=== PATIENT | female | born 1985 | race Caucasian/White ===

== ENCOUNTER → 2016-07-13 | Outpatient (CLI) | payer OTHER ==
[~2016-07-13] MED LIST: ALBUTEROL0.09 MG/A2 INH; ALLEGRA-D 12 HO1 TER PO; AMBIEN10 M1 PO; AMOXICILLIN500 M3 PO; AMOXIL500 MG PO; AUGMENTIN 875875 MG PO; BIRTH CONTROL1 EAC1 PO; CALCIUM W/VITAM1 TAB PO; CATAFLAM50 MG PO; CEPHALEXIN500 M1 PO; CLEOCIN HCL150 MG PO; DICLOFENAC POTA50 MG PO; ERYTHROCIN250 MG PO; ERYTHROMYCIN D; FLEXERIL10 MG PO; FLEXERIL5 MG PO; FLONASE ALLERG9.9 ML NAS; GUAIFENESIN600 MG PO; HYCODAN,HYDROME10 ML PO; HYDROCODONE BIT1 T11 PO; LAMICTAL ODT100 MG PO; LIDEX 0.05% CRE15 GM T; LOMOTIL 0.025 M1 TAB PO; MEDROL DOSEPAK4 MG PO; MIRAPEX0.5 MG PO; MOTRIN600 MG PO; MOTRIN800 MG PO; NEURONTIN300 MG PO; NORFLEX100 MG PO; OTC COUGH MED; OYSTER CALCIUM500 M1 PO; PENICILLIN VK500 MG PO; PHENERGAN W/ DE30 ML PO; PREDNICOT10 MG PO; PREDNISONE10 MG PO; PRENATAL1 TA7 PO; PRILOSEC20 MG PO; PROAIR HFA0.09 MG/AC INH; PROVENTIL0.09 MG/A1 INH; ROBITUSSIN AC 10 MG/ PO; ROBITUSSIN AC 110 ML PO; THE MEDICINE S400 IU PO; TRAMADOL HCL50 MG PO; TRIMOX500 MG PO; TYLENOL500 MG PO; ULTRAM50 MG PO; VENTOLIN H0.09 MG/AC INH; VIBRAMYCIN100 MG PO; VICODIN 5/500 505 MG PO; VITAMIN B PO; VITAMIN D32000 I1 PO; ZITHROMAX Z PA250 MG PO; ZITHROMAX250 MG PO; ZITHROMAX500 MG PO; ZOFRAN4 MG PO; Zofran4 MG PO
[2016-07-13 11:59] LABS: BASO % 0.3 % (0.0-1.0); EOS # 0.2 10*3/uL (0.0-0.4); EOS % 1.3 % (1.0-4.0); HEMATOCRIT 40.9 % (37.0-47.0); HEMOGLOBIN 13.3 g/dl (12.0-16.0); LYMPH # 2.9 10*3/uL (1.3-4.4); MEAN CORPUSCULAR HGB 28.3 pg (27.0-31.0); MEAN CORPUSCULAR HGB CONC 32.5 g/dl (33.0-37.0); MEAN PLATELET VOLUME 9.6 fl (9.6-12.3); MONO # 0.5 10*3/uL (0.1-1.0); MONO % 4.6 % (3.0-9.0); NEUT # 7.9 10*3/uL (2.3-7.9); NEUT % 68.5 % (47.0-73.0); PLATELET COUNT AUTOMATED 346 10*3/uL (130-400); RED CELL DISTRI WIDTH 14.3 % (0-14.5); WHITE BLOOD COUNT 11.5 10*3/uL (4.8-10.8)
== END | disposition home or self-care (01) ==
LOC: LAB 11:45
PROVIDERS: Nurse Practitioner Family
DX: D72.829 Elevated white blood cell count, unspecified (principal)

== ENCOUNTER 2016-11-25 18:56 | Emergency (ER) | payer OTHER ==
[~2016-11-25] VITALS: Ht 170.1 cm; Wt 156.0 kg
[2016-11-25] MEDS ORDERED: FLONASE ALLERG9.9 ML NAS (19:24)
[2016-11-25] MEDS ORDERED: CLARITIN10 MG PO (19:24)
[2016-11-25] MEDS ORDERED: ROBITUSSIN DM 105 ML PO (19:24)
[2016-11-25 19:30] LABS: BASO % 0.4 % (0.0-1.0); EOS # 0.2 10*3/uL (0.0-0.4); EOS % 2.1 % (1.0-4.0); HEMATOCRIT 39.2 % (37.0-47.0); HEMOGLOBIN 12.7 g/dl (12.0-16.0); LYMPH # 3.2 10*3/uL (1.3-4.4); LYMPH % 28.6 % (27.0-41.0); MEAN CELL VOLUME 89.7 fl (81.0-99.0); MEAN CORPUSCULAR HGB 29.1 pg (27.0-31.0); MEAN CORPUSCULAR HGB CONC 32.4 g/dl (33.0-37.0); MEAN PLATELET VOLUME 9.3 fl (9.6-12.3); MONO # 0.6 10*3/uL (0.1-1.0); MONO % 5.4 % (3.0-9.0); NEUT # 7.1 10*3/uL (2.3-7.9); PLATELET COUNT AUTOMATED 336 10*3/uL (130-400); RED BLOOD COUNT 4.37 10*6/uL (4.10-5.10); RED CELL DISTRI WIDTH 14.1 % (0-14.5); WHITE BLOOD COUNT 11.2 10*3/uL (4.8-10.8)
[2016-11-25 19:45] LABS: ALBUMIN 3.4 gm/dl (3.1-4.5); ALKALINE PHOSPHATASE 102 U/L (45-117); BUN 17 mg/dl (7-24); CHLORIDE 110 mmol/L (98-107); CREATININE 1.08 mg/dL (0.55-1.02); SGOT/AST 13 IU/L (3-35); SGPT/ALT 38 U/L (12-78); SODIUM 143 mmol/L (136-145); TOTAL PROTEIN 7.2 gm/dL (6.4-8.2)
[2016-11-25] MEDS ORDERED: AVPAK AZITHROM250 MG PO (20:39)
== END 2016-11-25 21:19 | disposition home or self-care (01) ==
LOC: ED 18:56
PROVIDERS: Nurse Practitioner Family
DX: J06.9 Acute upper respiratory infection, unspecified (principal); R03.0 Elevated blood-pressure reading, without diagnosis of hypertension; F17.200 Nicotine dependence, unspecified, uncomplicated; Z88.6 Allergy status to analgesic agent

== ENCOUNTER 2017-03-13 15:33 | Emergency (ER) | payer OTHER ==
[~2017-03-13 15:33] MED LIST changes: +AVPAK AZITHROM250 MG PO; +CLARITIN10 MG PO; +ROBITUSSIN DM 105 ML PO
[2017-03-13] MEDS ORDERED: TESSALON PERLE100 M1 PO (16:11)
[2017-03-13] MEDS ORDERED: HYCODAN/HYDROMET5 ML PO (16:11)
== END 2017-03-13 16:14 | disposition home or self-care (01) ==
LOC: ED 15:33
DX: B34.9 Viral infection, unspecified (principal); F17.200 Nicotine dependence, unspecified, uncomplicated; Z79.899 Other long term (current) drug therapy; Z88.6 Allergy status to analgesic agent

== ENCOUNTER → 2017-03-29 | Outpatient (CLI) | payer OTHER ==
[~2017-03-29] MED LIST changes: +HYCODAN/HYDROMET5 ML PO; +TESSALON PERLE100 M1 PO
== END | disposition home or self-care (01) ==
LOC: LAB 14:53
DX: F39 Unspecified mood [affective] disorder (principal)

== ENCOUNTER → 2017-06-24 | Outpatient (CLI) | payer OTHER | END | disposition home or self-care (01) | LOC: LAB 13:27 | DX: F39 Unspecified mood [affective] disorder (principal) ==

== ENCOUNTER 2024-08-16 09:27 | Emergency (ER) | payer OTHER ==
[~2024-08-16] VITALS: Ht 170.1 cm; Wt 211.4 kg
[2024-08-16] MEDS ORDERED: MIRTAZAPINE15 M1 PO (09:52)
[2024-08-16] MEDS ORDERED: LIPITOR10 MG PO (09:53)
[2024-08-16] MEDS ORDERED: METFORMIN XR500 MG PO (09:53)
[2024-08-16] MEDS ORDERED: NYSTATIN1 EAC9 MC (09:53)
[2024-08-16] MEDS ORDERED: SYMB160 INH (09:55)
[2024-08-16] MEDS ORDERED: AIRSUPRA 90-810.7 GM IH (09:55)
[2024-08-16 11:49] LABS: BASO % 0.2 % (0.0-1.0); EOS # 0.2 10*3/uL (0.0-0.4); EOS % 2.1 % (1.0-4.0); HEMATOCRIT 39.6 % (37.0-47.0); MEAN CELL VOLUME 86.7 fl (81.0-99.0); MEAN CORPUSCULAR HGB 27.6 pg (27.0-31.0); MEAN CORPUSCULAR HGB CONC 31.8 g/dl (33.0-37.0); MEAN PLATELET VOLUME 9.4 fl (9.6-12.3); MONO # 0.6 10*3/uL (0.1-1.0); MONO % 6.4 % (3.0-9.0); NEUT # 6.4 10*3/uL (2.3-7.9); NEUT % 72.6 % (47.0-73.0); PLATELET COUNT AUTOMATED 302 10*3/uL (130-400); RED BLOOD COUNT 4.57 10*6/uL (4.10-5.10); WHITE BLOOD COUNT 8.8 10*3/uL (4.8-10.8)
[2024-08-16 12:42] LABS: ALKALINE PHOSPHATASE 97 U/L (46-116); BUN 16 mg/dl (9-23); CHLORIDE 106 mmol/L (98-107); POTASSIUM 4.3 mmol/L (3.4-5.1); SGPT/ALT 30 U/L (5-49); TOTAL PROTEIN 7.3 gm/dL (6.0-8.0)
[2024-08-16] MEDS ORDERED: NEURONTIN100 MG PO (14:58)
== END 2024-08-16 15:15 | disposition home or self-care (01) ==
LOC: ED 09:27
PROVIDERS: Emergency Medicine
DX: R60.0 Localized edema (principal); R20.8 Other disturbances of skin sensation; R23.8 Other skin changes; Z88.6 Allergy status to analgesic agent; Z79.899 Other long term (current) drug therapy; Z79.84 Long term (current) use of oral hypoglycemic drugs; Z87.891 Personal history of nicotine dependence

== ENCOUNTER 2024-09-05 10:28 | Inpatient (IN) | payer OTHER ==
[~2024-09-05] VITALS: Ht 170.1 cm; Wt 205.5 kg
[~2024-09-05 10:28] MED LIST changes: +AIRSUPRA 90-810.7 GM IH; +LIPITOR10 MG PO; +METFORMIN XR500 MG PO; +MIRTAZAPINE15 M1 PO; +NEURONTIN100 MG PO; +NYSTATIN1 EAC9 MC; +SYMB160 INH
[2024-09-05 10:56] VITALS: BP 139/89
[2024-09-05 11:55] LABS: BILIRUBIN Negative (Negative); BLOOD Negative (Negative); CLARITY Cloudy (Clear); COLOR Yellow (Yellow); KETONE Negative (Negative); LEUKO ESTERASE 1+ (Negative); NITRITE Negative (Negative); PH 5.5 (4.5-8.0); SPECIFIC GRAVITY 1.010 (1.001-1.030); UROBILINOGEN 1.0 E.U./dl (0.0-1.0)
[2024-09-05 12:06] LABS: BACTERIA 1+; RBC 0-2 rbc/hpf (0-2)
[2024-09-05 12:08] LABS: BASO # 0.0 10*3/uL (0.0-0.1); BASO % 0.1 % (0.0-1.0); EOS # 0.2 10*3/uL (0.0-0.4); EOS % 1.9 % (1.0-4.0); MEAN CELL VOLUME 86.0 fl (81.0-99.0); MEAN CORPUSCULAR HGB 26.7 pg (27.0-31.0); MEAN PLATELET VOLUME 9.3 fl (9.6-12.3); MONO # 0.6 10*3/uL (0.1-1.0); MONO % 4.8 % (3.0-9.0); NEUT # 9.0 10*3/uL (2.3-7.9); NEUT % 76.4 % (47.0-73.0); NUCLEATED RED BLOOD CELL 0.0 % (0.0-0.0); NUCLEATED RED BLOOD CELL 0.0 10*3/uL (0.0-0.0); PLATELET COUNT AUTOMATED 374 10*3/uL (130-400); RED CELL DISTRI WIDTH 14.6 % (0-14.5)
[2024-09-05 12:32] LABS: BUN 9 mg/dl (9-23)
[2024-09-05 14:26] VITALS: BP 144/72
[2024-09-05] MEDS ORDERED: PERFLUTREN PROTEIN-A MICROSPHR 3 ML VIAL IV ONE (15:00)
[2024-09-05] MEDS ORDERED: Vancomycin Hydrochloride 1,000 MG in SODIUM CHLORIDE 0.9% 250 ML IV SCH (15:10)
[2024-09-05] MEDS ORDERED: Ondansetron Hydrochloride 4 MG/2 ML VIAL IV PRN (15:30)
[2024-09-05] MEDS ORDERED: ACETAMINOPHEN 325 MG TAB PO PRN (15:30)
[2024-09-05] MEDS ORDERED: BISACODYL 5 MG TAB PO PRN (15:30)
[2024-09-05 20:30] VITALS: BP 144/67
[2024-09-05] MEDS ORDERED: NEXPLANON68 M2 SQ (20:30)
[2024-09-05] MEDS ORDERED: LAMOTRIGINE 100 MG TAB PO SCH (22:00)
[2024-09-05] MEDS ORDERED: Mirtazapine 15 MG TAB PO SCH (22:00)
[2024-09-05] MEDS ORDERED: ATORVASTATIN CALCIUM 10 MG TAB PO SCH (22:00)
[2024-09-06] VITALS: BP 120/53
[2024-09-06 06:19] LABS: BASO # 0.0 10*3/uL (0.0-0.1); BASO % 0.1 % (0.0-1.0); EOS # 0.2 10*3/uL (0.0-0.4); EOS % 1.9 % (1.0-4.0); MEAN CELL VOLUME 87.9 fl (81.0-99.0); MEAN CORPUSCULAR HGB 27.0 pg (27.0-31.0); MEAN PLATELET VOLUME 9.6 fl (9.6-12.3); MONO # 0.6 10*3/uL (0.1-1.0); MONO % 5.9 % (3.0-9.0); NEUT # 7.4 10*3/uL (2.3-7.9); NEUT % 76.3 % (47.0-73.0); NUCLEATED RED BLOOD CELL 0.0 % (0.0-0.0); NUCLEATED RED BLOOD CELL 0.0 10*3/uL (0.0-0.0); PLATELET COUNT AUTOMATED 358 10*3/uL (130-400); RED CELL DISTRI WIDTH 14.7 % (0-14.5)
[2024-09-06 06:40] LABS: VITAMIN D, 25-HYDROXY 46.0 ng/mL (30-100)
[2024-09-06 06:56] LABS: BUN 11.0 mg/dl (9-23); FREE T4 1.19 ng/dl (0.89-1.76); LDL CHOLESTEROL 75.0 mg/dL (9-159); SGPT/ALT 24.0 U/L (5-49)
[2024-09-06 08:00] VITALS: BP 149/84
[2024-09-06 12:00] VITALS: BP 138/87
[2024-09-06 16:00] VITALS: BP 133/79
[2024-09-06] MEDS ORDERED: Menthol/Zinc Oxide 4 GM THIN T SCH (18:00)
[2024-09-06 20:00] VITALS: BP 117/57
[2024-09-07] VITALS: BP 143/61
[2024-09-07 08:00] VITALS: BP 149/54
[2024-09-07 09:48] LABS: BASO # 0.0 10*3/uL (0.0-0.1); BASO % 0.2 % (0.0-1.0); EOS # 0.2 10*3/uL (0.0-0.4); EOS % 1.9 % (1.0-4.0); MEAN CELL VOLUME 88.2 fl (81.0-99.0); MEAN CORPUSCULAR HGB 27.5 pg (27.0-31.0); MEAN PLATELET VOLUME 9.4 fl (9.6-12.3); MONO # 0.4 10*3/uL (0.1-1.0); MONO % 4.1 % (3.0-9.0); NEUT # 6.8 10*3/uL (2.3-7.9); NEUT % 75.2 % (47.0-73.0); NUCLEATED RED BLOOD CELL 0.0 % (0.0-0.0); NUCLEATED RED BLOOD CELL 0.0 10*3/uL (0.0-0.0); PLATELET COUNT AUTOMATED 347 10*3/uL (130-400); RED CELL DISTRI WIDTH 14.7 % (0-14.5)
[2024-09-07 10:31] LABS: BUN 12 mg/dl (9-23)
[2024-09-07 12:00] VITALS: BP 143/66
[2024-09-07] MEDS ORDERED: IOHEXOL 350 MG/ML 100 ML VIAL IV ONE (13:05)
[2024-09-07] MEDS ORDERED: SODIUM CHLORIDE 0.9% 100 ML BAG IV ONE (13:05)
[2024-09-07 16:00] VITALS: BP 139/46
[2024-09-07 20:00] VITALS: BP 154/62
[2024-09-08] VITALS: BP 115/38
[2024-09-08 06:10] LABS: BUN 11 mg/dl (9-23)
[2024-09-08 06:38] LABS: BASO # 0.0 10*3/uL (0.0-0.1); BASO % 0.1 % (0.0-1.0); EOS # 0.2 10*3/uL (0.0-0.4); EOS % 2.2 % (1.0-4.0); MEAN CELL VOLUME 88.0 fl (81.0-99.0); MEAN CORPUSCULAR HGB 26.8 pg (27.0-31.0); MEAN PLATELET VOLUME 9.6 fl (9.6-12.3); MONO # 0.5 10*3/uL (0.1-1.0); MONO % 5.9 % (3.0-9.0); NEUT # 6.4 10*3/uL (2.3-7.9); NEUT % 69.6 % (47.0-73.0); NUCLEATED RED BLOOD CELL 0.0 % (0.0-0.0); NUCLEATED RED BLOOD CELL 0.0 10*3/uL (0.0-0.0); PLATELET COUNT AUTOMATED 324 10*3/uL (130-400); RED CELL DISTRI WIDTH 14.8 % (0-14.5)
[2024-09-08 08:00] VITALS: BP 126/56
[2024-09-08 12:00] VITALS: BP 130/50
[2024-09-08 16:00] VITALS: BP 131/53
[2024-09-08 20:00] VITALS: BP 136/67
[2024-09-09] VITALS: BP 137/69
[2024-09-09 06:13] LABS: BUN 14 mg/dl (9-23)
[2024-09-09 08:00] VITALS: BP 134/51
[2024-09-09 12:00] VITALS: BP 159/60
[2024-09-09] MEDS ORDERED: CEPHALEXIN 500 MG CAP PO SCH (12:00)
[2024-09-09 16:00] VITALS: BP 133/64
[2024-09-09 20:00] VITALS: BP 138/63
[2024-09-10] VITALS: BP 137/55
[2024-09-10 08:00] VITALS: BP 130/60
[2024-09-10] MEDS ORDERED: DOXYCYCLINE HY100 M3 PO (11:46)
[2024-09-10] MEDS ORDERED: KEFLEX 500 MG E2 CAP PO (11:46)
[2024-09-10 12:00] VITALS: BP 120/49
[2024-09-10 16:00] VITALS: BP 130/65
== END 2024-09-10 21:13 | disposition home or self-care (01) | DRG 383 ==
LOC: ED 10:28 → EDHOLD 14:28 → 5E 14:28 → 4E 14:28 → 5E 09-06 06:38
PROVIDERS: Internal Medicine; Nurse Practitioner Family; Registered Nurse; Student in an Organized Health Care Education/Training Program; ADMIT Internal Medicine; ATTEND Internal Medicine
DX: L03.115 Cellulitis of right lower limb (principal); Z68.45 Body mass index [BMI] 70 or greater, adult; L03.116 Cellulitis of left lower limb; E66.9 Obesity, unspecified; F32.A Depression, unspecified; E78.5 Hyperlipidemia, unspecified; G25.81 Restless legs syndrome; G47.33 Obstructive sleep apnea (adult) (pediatric); J45.909 Unspecified asthma, uncomplicated; F17.200 Nicotine dependence, unspecified, uncomplicated; Z82.49 Family history of ischemic heart disease and other diseases of the circulatory system; Z83.3 Family history of diabetes mellitus; Z87.898 Personal history of other specified conditions; Z87.01 Personal history of pneumonia (recurrent); Z82.0 Family history of epilepsy and other diseases of the nervous system; Z79.899 Other long term (current) drug therapy

== ENCOUNTER → 2024-09-18 | Outpatient (CLI) | payer OTHER ==
[~2024-09-18] MED LIST changes: +DOXYCYCLINE HY100 M3 PO; +KEFLEX 500 MG E2 CAP PO; +NEXPLANON68 M2 SQ
== END | disposition home or self-care (01) ==
LOC: WOUNDCARE 01:31 → MAMMO 13:00 → WOUNDCARE 13:00 → US 13:30
PROVIDERS: ATTEND Nurse Practitioner Women's Health
DX: L97.822 Non-pressure chronic ulcer of other part of left lower leg with fat layer exposed (principal); L97.812 Non-pressure chronic ulcer of other part of right lower leg with fat layer exposed; I87.2 Venous insufficiency (chronic) (peripheral); R60.0 Localized edema; L03.115 Cellulitis of right lower limb; L03.116 Cellulitis of left lower limb; E78.5 Hyperlipidemia, unspecified; G47.33 Obstructive sleep apnea (adult) (pediatric); J45.909 Unspecified asthma, uncomplicated; J42 Unspecified chronic bronchitis; E66.9 Obesity, unspecified; F32.A Depression, unspecified; Z68.45 Body mass index [BMI] 70 or greater, adult; Z85.3 Personal history of malignant neoplasm of breast; Z98.890 Other specified postprocedural states; Z79.84 Long term (current) use of oral hypoglycemic drugs; Z79.899 Other long term (current) drug therapy

== ENCOUNTER → 2024-09-24 | Outpatient (CLI) | payer OTHER | END | disposition home or self-care (01) | LOC: WOUNDCARE 01:07 | PROVIDERS: ATTEND Nurse Practitioner Primary Care | DX: L97.822 Non-pressure chronic ulcer of other part of left lower leg with fat layer exposed (principal); L97.812 Non-pressure chronic ulcer of other part of right lower leg with fat layer exposed; I87.2 Venous insufficiency (chronic) (peripheral); L03.115 Cellulitis of right lower limb; L03.116 Cellulitis of left lower limb; R60.0 Localized edema; J45.909 Unspecified asthma, uncomplicated; J42 Unspecified chronic bronchitis; E78.5 Hyperlipidemia, unspecified; G47.33 Obstructive sleep apnea (adult) (pediatric); E66.9 Obesity, unspecified; F32.A Depression, unspecified; Z68.45 Body mass index [BMI] 70 or greater, adult; Z98.890 Other specified postprocedural states; Z79.84 Long term (current) use of oral hypoglycemic drugs; Z79.899 Other long term (current) drug therapy ==

== ENCOUNTER → 2024-10-04 | Outpatient (CLI) | payer OTHER | END | disposition home or self-care (01) | LOC: WOUNDCARE 02:48 | PROVIDERS: ATTEND Nurse Practitioner Family | DX: L97.812 Non-pressure chronic ulcer of other part of right lower leg with fat layer exposed (principal); L97.822 Non-pressure chronic ulcer of other part of left lower leg with fat layer exposed; R60.0 Localized edema; L03.115 Cellulitis of right lower limb; L03.116 Cellulitis of left lower limb; I87.2 Venous insufficiency (chronic) (peripheral); I73.9 Peripheral vascular disease, unspecified; J45.909 Unspecified asthma, uncomplicated; J42 Unspecified chronic bronchitis; E78.5 Hyperlipidemia, unspecified; G47.33 Obstructive sleep apnea (adult) (pediatric); E66.9 Obesity, unspecified; F32.A Depression, unspecified; Z68.45 Body mass index [BMI] 70 or greater, adult; Z98.890 Other specified postprocedural states; Z79.84 Long term (current) use of oral hypoglycemic drugs; Z79.899 Other long term (current) drug therapy ==

== ENCOUNTER → 2024-10-08 | Outpatient (CLI) | payer OTHER | END | disposition home or self-care (01) | LOC: WOUNDCARE 01:28 | PROVIDERS: ATTEND Nurse Practitioner Family | DX: L97.812 Non-pressure chronic ulcer of other part of right lower leg with fat layer exposed (principal); L97.822 Non-pressure chronic ulcer of other part of left lower leg with fat layer exposed; L03.115 Cellulitis of right lower limb; L03.116 Cellulitis of left lower limb; I87.2 Venous insufficiency (chronic) (peripheral); I73.9 Peripheral vascular disease, unspecified; J45.909 Unspecified asthma, uncomplicated; J42 Unspecified chronic bronchitis; E78.5 Hyperlipidemia, unspecified; G47.33 Obstructive sleep apnea (adult) (pediatric); R60.0 Localized edema; E66.9 Obesity, unspecified; F32.A Depression, unspecified; Z68.45 Body mass index [BMI] 70 or greater, adult; Z98.890 Other specified postprocedural states; Z79.84 Long term (current) use of oral hypoglycemic drugs; Z79.899 Other long term (current) drug therapy ==

== ENCOUNTER → 2024-10-11 | Outpatient (CLI) | payer OTHER | END | disposition home or self-care (01) | LOC: WOUNDCARE 02:03 | PROVIDERS: ATTEND Nurse Practitioner Family | DX: L97.812 Non-pressure chronic ulcer of other part of right lower leg with fat layer exposed (principal); L97.822 Non-pressure chronic ulcer of other part of left lower leg with fat layer exposed; L03.115 Cellulitis of right lower limb; L03.116 Cellulitis of left lower limb; R73.03 Prediabetes; I87.2 Venous insufficiency (chronic) (peripheral); R60.0 Localized edema; E78.5 Hyperlipidemia, unspecified; I73.9 Peripheral vascular disease, unspecified; J45.909 Unspecified asthma, uncomplicated; G47.33 Obstructive sleep apnea (adult) (pediatric); E66.9 Obesity, unspecified; F32.A Depression, unspecified; Z68.45 Body mass index [BMI] 70 or greater, adult; Z98.890 Other specified postprocedural states; Z79.84 Long term (current) use of oral hypoglycemic drugs; Z79.899 Other long term (current) drug therapy ==

== ENCOUNTER → 2024-10-26 | Outpatient (CLI) | payer OTHER | END | disposition home or self-care (01) | LOC: WOUNDCARE 02:30 | PROVIDERS: ATTEND Nurse Practitioner Family | DX: L97.812 Non-pressure chronic ulcer of other part of right lower leg with fat layer exposed (principal); L97.822 Non-pressure chronic ulcer of other part of left lower leg with fat layer exposed; I87.2 Venous insufficiency (chronic) (peripheral); R60.0 Localized edema; L03.115 Cellulitis of right lower limb; L03.116 Cellulitis of left lower limb; E11.51 Type 2 diabetes mellitus with diabetic peripheral angiopathy without gangrene; G25.81 Restless legs syndrome; G47.33 Obstructive sleep apnea (adult) (pediatric); E78.5 Hyperlipidemia, unspecified; E66.9 Obesity, unspecified; F32.A Depression, unspecified; Z68.45 Body mass index [BMI] 70 or greater, adult; Z98.890 Other specified postprocedural states; Z79.899 Other long term (current) drug therapy ==

== ENCOUNTER → 2024-11-15 | Outpatient (CLI) | payer OTHER | END | disposition home or self-care (01) | LOC: US 10:26 | PROVIDERS: ATTEND Family Medicine | DX: I65.23 Occlusion and stenosis of bilateral carotid arteries (principal); E04.1 Nontoxic single thyroid nodule ==

== ENCOUNTER → 2024-12-03 | Outpatient (CLI) | payer OTHER | END | disposition home or self-care (01) | LOC: WOUNDCARE 01:50 | PROVIDERS: ATTEND Nurse Practitioner Family | DX: L97.811 Non-pressure chronic ulcer of other part of right lower leg limited to breakdown of skin (principal); I87.2 Venous insufficiency (chronic) (peripheral); I89.0 Lymphedema, not elsewhere classified; R73.03 Prediabetes; R60.9 Edema, unspecified; F32.A Depression, unspecified; E78.5 Hyperlipidemia, unspecified; G25.81 Restless legs syndrome; G47.33 Obstructive sleep apnea (adult) (pediatric); J45.909 Unspecified asthma, uncomplicated; E66.9 Obesity, unspecified; Z68.45 Body mass index [BMI] 70 or greater, adult ==

== ENCOUNTER → 2024-12-10 | Outpatient (CLI) | payer OTHER | END | disposition home or self-care (01) | LOC: WOUNDCARE 00:52 | PROVIDERS: ATTEND Nurse Practitioner Family | DX: L97.812 Non-pressure chronic ulcer of other part of right lower leg with fat layer exposed (principal); I87.2 Venous insufficiency (chronic) (peripheral); I89.0 Lymphedema, not elsewhere classified; R60.9 Edema, unspecified; R73.03 Prediabetes; E78.5 Hyperlipidemia, unspecified; G25.81 Restless legs syndrome; G47.33 Obstructive sleep apnea (adult) (pediatric); J45.909 Unspecified asthma, uncomplicated; E66.9 Obesity, unspecified; F32.A Depression, unspecified; Z68.45 Body mass index [BMI] 70 or greater, adult ==

== ENCOUNTER → 2024-12-11 | Outpatient (CLI) | payer OTHER | END | disposition home or self-care (01) | LOC: US 09:53 | PROVIDERS: ATTEND Family Medicine | DX: E04.2 Nontoxic multinodular goiter (principal) ==

== ENCOUNTER → 2025-01-25 | Outpatient (CLI) | payer OTHER | END | disposition home or self-care (01) | LOC: WOUNDCARE 03:42 | PROVIDERS: ATTEND Nurse Practitioner Family | DX: I89.0 Lymphedema, not elsewhere classified (principal); L97.812 Non-pressure chronic ulcer of other part of right lower leg with fat layer exposed; I87.2 Venous insufficiency (chronic) (peripheral); R73.03 Prediabetes; R60.9 Edema, unspecified; E78.5 Hyperlipidemia, unspecified; G25.81 Restless legs syndrome; G47.33 Obstructive sleep apnea (adult) (pediatric); E66.9 Obesity, unspecified; F32.A Depression, unspecified; Z68.45 Body mass index [BMI] 70 or greater, adult ==

== ENCOUNTER → 2025-01-31 | Outpatient (CLI) | payer OTHER | END | disposition home or self-care (01) | LOC: WOUNDCARE 03:33 | PROVIDERS: ATTEND Nurse Practitioner Family | DX: I89.0 Lymphedema, not elsewhere classified (principal); E78.5 Hyperlipidemia, unspecified; G25.81 Restless legs syndrome; G47.33 Obstructive sleep apnea (adult) (pediatric); I87.2 Venous insufficiency (chronic) (peripheral); R73.03 Prediabetes; E66.9 Obesity, unspecified; R60.9 Edema, unspecified; J45.909 Unspecified asthma, uncomplicated; F32.A Depression, unspecified; Z68.45 Body mass index [BMI] 70 or greater, adult ==

== ENCOUNTER → 2025-02-07 | Outpatient (CLI) | payer OTHER | END | disposition home or self-care (01) | LOC: WOUNDCARE 00:43 | PROVIDERS: ATTEND Nurse Practitioner Family | DX: I89.0 Lymphedema, not elsewhere classified (principal); I87.2 Venous insufficiency (chronic) (peripheral); E78.5 Hyperlipidemia, unspecified; R73.03 Prediabetes; R60.9 Edema, unspecified; J45.909 Unspecified asthma, uncomplicated; G47.33 Obstructive sleep apnea (adult) (pediatric); E66.9 Obesity, unspecified; F32.A Depression, unspecified; Z68.45 Body mass index [BMI] 70 or greater, adult; Z98.890 Other specified postprocedural states; Z79.84 Long term (current) use of oral hypoglycemic drugs; Z79.899 Other long term (current) drug therapy ==